=== PATIENT | female | born 1930 | race Caucasian/White ===

== ENCOUNTER 2016-11-10 09:47 | Emergency (ER) | payer MEDICARE, OTHER ==
[2016-11-10 10:00] VITALS: BP 137/69
--- NOTE | 2016-11-10 10:35 | EDM.PDOC ---
ED HPI GENERAL MEDICAL PROBLEM - General Chief Complaint: General Stated Complaint: FEELS WEAK/HEAD FEEL HEAVY Time Seen by Provider: 11/10/16 10:16 Source of Information: Reports: Patient, Family, RN Notes Reviewed History Limitations: Reports: No Limitations - History of Present Illness INITIAL COMMENTS - FREE TEXT/NARRATIVE: 86-year-old female presents emergency department day with a complaint of not feeling right, she states she felt well yesterday however this morning she woke up feeling slightly dizzy "head is heavy" no shortness of breath chest pain nausea vomiting dysuria she does admit to being anxious and concerned about family affairs Right Abdominal Pain Score (Numeric/FACES): 1 - Related Data Allergies Allergy/AdvReac Type Severity Reaction Status Date / Time gentamicin [Gentamicin] Allergy Rash Verified 11/10/16 10:08 acetaminophen [From Tylenol] AdvReac does not Verified 11/10/16 10:08 work codeine AdvReac does not Verified 11/10/16 10:08 work Home Meds: Home Meds Lisinopril 20 mg PO DAILY 01/29/13 [History] atorvaSTATin [Lipitor] 80 mg PO DAILY 01/29/13 [History] metFORMIN [metFORMIN XR] 500 mg PO BID 01/29/13 [History] Cephalexin [Keflex] 250 mg PO .M,W,F 11/01/13 [History] Amoxicillin/Potassium Clav [Augmentin 875-125 Tablet] 1 tab PO BID 11/10/16 [ History] Aspirin [Halfprin] 1 tab PO DAILY 11/10/16 [History] Past Medical History HEENT History: Reports: Cataract, Hard of Hearing, Impaired Vision Cardiovascular History: Reports: High Cholesterol, Hypertension Gastrointestinal History: Reports: Diverticulosis Genitourinary History: Reports: UTI, Recurrent, Other (See Below) Other Genitourinary History: prophylaxis with cephalexin 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: Musculoskeletal History: Reports: Osteoarthritis, Other (See Below) Other Musculoskeletal History: sciatica Psychiatric History: Reports: Anxiety Endocrine/Metabolic History: Reports: Diabetes, Type II Oncologic (Cancer) History: Reports: Basal Cell Carcinoma, Bladder - Past Surgical History HEENT Surgical History: Reports: Other (See Below) Other HEENT Surgeries/Procedures: retina surgery left eye Female Surgical History: Reports: Hysterectomy, Oophorectomy, Other (See Below) Other Female Surgeries/Procedures: transurethral resection Endocrine Surgical History: Reports: Other (See Below) Other Endocrine Surgeries/Procedures: removal of parathyroid adenoma Oncologic Surgical History: Reports: Biopsy of Breast Social & Family History - Tobacco Use Smoking Status *Q: Never Smoker Second Hand Smoke Exposure: No - Alcohol Use Days Per Week of Alcohol Use: 0 - Recreational Drug Use Recreational Drug Use: No ED ROS GENERAL - Review of Systems Review Of Systems: See Below Constitutional: Reports: No Symptoms HEENT: Reports: No Symptoms Respiratory: Reports: No Symptoms Cardiovascular: Reports: No Symptoms GI/Abdominal: Reports: No Symptoms : Reports: No Symptoms Musculoskeletal: Reports: No Symptoms Skin: Reports: No Symptoms Neurological: Reports: Dizziness ED EXAM, GENERAL - Physical Exam Exam: See Below Free Text/Narrative:: General: Elderly female, not in any distress, alert and oriented x3 HEENT: head is atraumatic normocephalic, eyes pupils equal round reactive to light, sclera clear no conjunctivitis appreciated. Ears tympanic membranes clear and watt landmarks and light reflex are present bilaterally canals are clear. Nose no septal deviation, nares are clear, no blood present. Mouth mucosa is moist and pink no erythema or exudate noted in soft palate, tongue is midline uvula is midline, dentition is intact. Neck: Supple no thyromegaly no tracheal deviation. Nodes: Cervical nodes subclavicular nodes nontender no palpable lymphadenopathy noted. Lungs: clear to auscultation bilaterally with symmetrical respirations, no adventitious noise appreciated. CV: Regular rate and rhythm S1 and S2 appreciated grade 2/6 systolic ejection murmur, no rubs or gallops noted. Abdomen: Soft, nontender, no palpable masses or organomegaly appreciated, no distention no guarding bowel sounds are present,. Neuro: Cranial nerves II through XII grossly intact, power is 5 out 5 in upper and lower extremities, patellar reflex, biceps reflex +2 can do finger to nose without difficulty no dysdiadochokinesis no difficulty with rapid alternating movements can do [id number] without difficulty Romberg is negative, has adequate gait can do heel to toe, can toe walk and heel walk no cerebellar dysfunction no focal neurologic deficit Skin: Warm and dry, intact Extremities: No lower extremity edema appreciated, Course - Vital Signs Last Recorded V/S: Last Vital Signs Temp 97.9 F 11/10/16 10:06 Pulse 86 11/10/16 10:06 Resp 14 11/10/16 10:06 BP 137/69 11/10/16 10:06 Pulse Ox 93 L 11/10/16 10:06 - Orders/Labs/Meds Orders: Active Orders 24 hr Category Date Time Status EKG Documentation Completion [RC] ASDIRECTED Care 11/10/16 10:32 Active EKG 12 Lead [EK] Urgent Ther 11/10/16 10:31 Ordered Labs: Laboratory Tests 11/10/16 11/10/16 11/10/16 Range/Units 10:37 10:37 11:27 WBC 6.6 (4.5-11.0) K/uL RBC 4.37 (3.30-5.50) M/uL Hgb 13.4 (12.0-15.0) g/dL Hct 40.9 (36.0-48.0) % MCV 94 (80-98) fL MCH 31 (27-31) pg MCHC 33 (32-36) % Plt Count 340 (150-400) K/uL Neut % (Auto) 63 (36-66) % Lymph % (Auto) 27 (24-44) % [place] % (Auto) 9 H (2-6) % Eos % (Auto) 1 L (2-4) % Baso % (Auto) 1 (0-1) % Sodium 141 (140-148) mmol/L Potassium 4.1 (3.6-5.2) mmol/L Chloride 103 (100-108) mmol/L Carbon Dioxide 29 (21-32) mmol/L Anion Gap 8.6 (5.0-14.0) mmol/L BUN 17 (7-18) mg/dL Creatinine 0.9 (0.6-1.0) mg/dL Est Cr Clr Drug Dosing 46.02 mL/min Estimated GFR (MDRD) 59 L (>60) Glucose 226 H (74-106) mg/dL Calcium 9.0 (8.5-10.1) mg/dL TSH, Ultra Sensitive 2.750 (0.358-3.740) uIU/mL Urine Color Yellow Urine Appearance Slightly cloudy Urine pH 5.0 (4.5-8.0) Ur Specific [place] 1.020 (1.008-1.030) Urine Protein Negative (NEGATIVE) mg/dL Urine Glucose (UA) 100 H (NEGATIVE) mg/dL Urine Ketones Negative (NEGATIVE) mg/dL Urine Occult Blood Large (NEGATIVE) Urine Nitrite Negative (NEGATIVE) Urine Bilirubin Negative (NEGATIVE) Urine Urobilinogen Normal (NORMAL) mg/dL Ur Leukocyte Esterase Negative (NEGATIVE) Urine RBC 10-20 H (0-5) Urine WBC 0-5 (0-5) Ur Epithelial Cells Few Amorphous Sediment Not seen Urine Bacteria Rare Urine Mucus Moderate Departure - Departure Time of Disposition: 12:11 Disposition: Home, Self-Care 01 Condition: Good Clinical Impression: Hematuria - Discharge Information Forms: ED Department Discharge Additional Instructions: Continue with your regular medications, Please followup with your primary care provider in 7-10 days if not better, please call return to the emergency department with worsening of symptoms. - My Orders Last 24 Hours: My Active Orders 11/10/16 10:31 EKG 12 Lead [EK] Urgent 11/10/16 10:32 EKG Documentation Completion [RC] ASDIRECTED - Assessment/Plan Last 24 Hours: My Active Orders 11/10/16 10:31 EKG 12 Lead [EK] Urgent 11/10/16 10:32 EKG Documentation Completion [RC] ASDIRECTED Plan: Assessment Acuity = acute Site and laterality = intermittent dizziness, complicated in patient with known history of diabetes mellitus type II Etiology = suspicious for blood sugar fluctuation Manifestations = none Location of injury = Home Lab values = CBC unremarkable glucose elevated to 226 consistent hyperglycemia urinalysis reveals 10-20 rbc's consistent with a hematuria Plan I did review lab work with her the hematuria is new to her I have asked her follow-up with her primary care in the next 7-10 days for reevaluation Patient was in agreement with the plan all questions were answered, they were instructed to return to the emergency department or call for worsening symptoms. This note was dictated using [employer] voice recognition software please call with any questions.
== END 2016-11-10 12:40 | disposition home or self-care (01) ==
LOC: JP.ED 09:47
DX: R31.9 Hematuria, unspecified (principal); I10 Essential (primary) hypertension; E78.00 Pure hypercholesterolemia, unspecified; M19.90 Unspecified osteoarthritis, unspecified site; F41.9 Anxiety disorder, unspecified; E11.9 Type 2 diabetes mellitus without complications; Z85.51 Personal history of malignant neoplasm of bladder; Z85.828 Personal history of other malignant neoplasm of skin; Z98.890 Other specified postprocedural states; Z90.710 Acquired absence of both cervix and uterus; Z79.82 Long term (current) use of aspirin; Z79.899 Other long term (current) drug therapy; Z88.5 Allergy status to narcotic agent; Z88.6 Allergy status to analgesic agent; Z88.1 Allergy status to other antibiotic agents
CPT/HCPCS: 36415; 80048; 81001; 84443; 85025; 93005; 93010; 99282; 99284-25

== ENCOUNTER 2017-02-21 11:33 | Emergency (ER) | payer MEDICARE, OTHER ==
[2017-02-21 12:00] VITALS: BP 163/83
--- NOTE | 2017-02-21 12:27 | EDM.PDOC ---
ED HPI GENERAL MEDICAL PROBLEM - General Chief Complaint: General Stated Complaint: FELL AT COBORN'S Time Seen by Provider: 02/21/17 12:09 Source of Information: Reports: Patient, RN Notes Reviewed History Limitations: Reports: No Limitations - History of Present Illness INITIAL COMMENTS - FREE TEXT/NARRATIVE: 87-year-old female presents emergency department day following a fall to ground , this happened at the grocery store earlier today she believes she tripped over her pain she was unable to catch herself landed predominantly on her chest and also injured her forehead above her left eye, she does have bruising over the left eye as well as tenderness over the left breast no other functional complaints - Related Data Allergies Allergy/AdvReac Type Severity Reaction Status Date / Time gentamicin [Gentamicin] Allergy Rash Verified 02/21/17 11:51 acetaminophen [From Tylenol] AdvReac does not Verified 02/21/17 11:51 work codeine AdvReac does not Verified 02/21/17 11:51 work Home Meds: Home Meds Lisinopril 20 mg PO DAILY 01/29/13 [History] atorvaSTATin [Lipitor] 80 mg PO BEDTIME 01/29/13 [History] metFORMIN [metFORMIN XR] 500 mg PO BID 01/29/13 [History] Cephalexin [Keflex] 250 mg PO .M,W,F 11/01/13 [History] Aspirin [Halfprin] 1 tab PO DAILY 11/10/16 [History] Past Medical History HEENT History: Reports: Cataract, Hard of Hearing, Impaired Vision Cardiovascular History: Reports: High Cholesterol, Hypertension Gastrointestinal History: Reports: Diverticulosis Genitourinary History: Reports: UTI, Recurrent, Other (See Below) Other Genitourinary History: prophylaxis with cephalexin 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: Musculoskeletal History: Reports: Osteoarthritis, Other (See Below) Other Musculoskeletal History: sciatica Psychiatric History: Reports: Anxiety Endocrine/Metabolic History: Reports: Diabetes, Type II Oncologic (Cancer) History: Reports: Basal Cell Carcinoma, Bladder - Past Surgical History HEENT Surgical History: Reports: Other (See Below) Other HEENT Surgeries/Procedures: retina surgery left eye Female Surgical History: Reports: Hysterectomy, Oophorectomy, Other (See Below) Other Female Surgeries/Procedures: transurethral resection Endocrine Surgical History: Reports: Other (See Below) Other Endocrine Surgeries/Procedures: removal of parathyroid adenoma Oncologic Surgical History: Reports: Biopsy of Breast Social & Family History - Tobacco Use Smoking Status *Q: Never Smoker Second Hand Smoke Exposure: No - Alcohol Use Days Per Week of Alcohol Use: 0 - Recreational Drug Use Recreational Drug Use: No ED ROS GENERAL - Review of Systems Review Of Systems: See Below Constitutional: Reports: No Symptoms Respiratory: Reports: No Symptoms Cardiovascular: Reports: Chest Pain GI/Abdominal: Reports: No Symptoms : Reports: No Symptoms Musculoskeletal: Reports: Other (Pain over the left eye) Skin: Reports: Bruising Neurological: Reports: No Symptoms ED EXAM, GENERAL - Physical Exam Exam: See Below Free Text/Narrative:: General: Elderly female, not in any distress, alert and oriented x3 HEENT: head is appreciable bruising is noted in the superior aspect of the left periorbital region normocephalic, eyes pupils equal round reactive to light, sclera clear no conjunctivitis appreciated, extraocular eye movements intact. Ears tympanic membranes clear and watt landmarks and light reflex are present bilaterally canals are clear. Nose no septal deviation, nares are clear, no blood present. Mouth mucosa is moist and pink no erythema or exudate noted in soft palate, tongue is midline uvula is midline, dentition is intact. Neck: Supple no thyromegaly no tracheal deviation. Nodes: Cervical nodes subclavicular nodes nontender no palpable lymphadenopathy noted. Lungs: clear to auscultation bilaterally with symmetrical respirations, no adventitious noise appreciated. CV: Regular rate and rhythm S1 and S2 appreciated no murmurs rubs or gallops noted. Chest she is tender to palpation over the left chest area no bruising noted Abdomen: Soft, nontender, no palpable masses or organomegaly appreciated, no distention no guarding bowel sounds are present, . Neuro: Cranial nerves II through XII grossly intact Skin: Warm and dry, intact Extremities: No lower extremity edema appreciated, Course - Vital Signs Last Recorded V/S: Last Vital Signs Temp 97.9 F 02/21/17 11:58 Pulse 72 02/21/17 11:58 Resp 16 02/21/17 11:58 BP 163/83 H 02/21/17 11:58 Pulse Ox 98 02/21/17 11:58 Departure - Departure Time of Disposition: 12:26 Disposition: Home, Self-Care 01 Condition: Good Clinical Impression: Periorbital contusion of left eye Qualifiers: Encounter type: initial encounter Qualified Code(s): S05.12XA - Contusion of eyeball and orbital tissues, left eye, initial encounter Chest wall contusion Qualifiers: Encounter type: initial encounter Laterality: left Qualified Code(s): S20.212A - Contusion of left front wall of thorax, initial encounter - Discharge Information Referrals: Virginia José PA [Primary Care Provider] - Additional Instructions: Use ibuprofen or Tylenol as needed for pain control, Please followup with your primary care provider in 3-5 days if not better, please call return to the emergency department with worsening of symptoms. - Assessment/Plan Plan: Assessment Acuity = acute Site and laterality = contusion above his left eye, chest wall contusion Etiology = secondary to fall Manifestations = none] Location of injury = Home Lab values = none Plan I did review with her options including image studies like a CAT scan, she elected to do watchful waiting at this time will follow-up as needed Patient was in agreement with the plan all questions were answered, they were instructed to return to the emergency department or call for worsening symptoms. This note was dictated using [employer] voice recognition software please call with any questions.
== END 2017-02-21 12:45 | disposition home or self-care (01) ==
LOC: JP.ED 11:33
DX: S05.12XA Contusion of eyeball and orbital tissues, left eye, initial encounter (principal); S20.212A Contusion of left front wall of thorax, initial encounter; I10 Essential (primary) hypertension; E78.00 Pure hypercholesterolemia, unspecified; E11.9 Type 2 diabetes mellitus without complications; Z79.82 Long term (current) use of aspirin; Z79.84 Long term (current) use of oral hypoglycemic drugs; Z88.5 Allergy status to narcotic agent; Z88.1 Allergy status to other antibiotic agents; Z88.8 Allergy status to other drugs, medicaments and biological substances; Z88.6 Allergy status to analgesic agent; W19.XXXA Unspecified fall, initial encounter; Y92.512 Supermarket, store or market as the place of occurrence of the external cause
CPT/HCPCS: 99283

== ENCOUNTER 2017-02-21 16:46 | Emergency (ER) | payer MEDICARE, OTHER ==
[2017-02-21] MEDS ORDERED: Sodium Chloride 0.9% 1,000 ML IV SCH (17:15)
[2017-02-21] MEDS ORDERED: Sodium Chloride 0.9% 10 ML Syringe FLUSH PRN (17:15)
[2017-02-21 17:18] VITALS: BP 152/79
--- NOTE | 2017-02-21 17:18 | EDM.PDOC ---
ED HPI GENERAL MEDICAL PROBLEM - General Chief Complaint: General Stated Complaint: TROUBLE BREATHING Time Seen by Provider: 02/21/17 17:09 Source of Information: Reports: Patient, Family, RN Notes Reviewed History Limitations: Reports: No Limitations - History of Present Illness INITIAL COMMENTS - FREE TEXT/NARRATIVE: 87-year-old female presents emergency department day for reevaluation she was in earlier in the day evaluated by myself following a fall to ground we talked about image studies she declined at the time she states did well when she went home today however after she awoke from her nap she had sudden chest pain on the left side where she fell and she found it difficult for her to breathe, please see prior note for details left side Pain Score (Numeric/FACES): 5 - Related Data Allergies Allergy/AdvReac Type Severity Reaction Status Date / Time gentamicin [Gentamicin] Allergy Rash Verified 02/21/17 16:50 acetaminophen [From Tylenol] AdvReac does not Verified 02/21/17 16:50 work codeine AdvReac does not Verified 02/21/17 16:50 work Home Meds: Home Meds Lisinopril 20 mg PO DAILY 01/29/13 [History] atorvaSTATin [Lipitor] 80 mg PO BEDTIME 01/29/13 [History] metFORMIN [metFORMIN XR] 500 mg PO BID 01/29/13 [History] Cephalexin [Keflex] 250 mg PO .M,W,F 11/01/13 [History] Aspirin [Halfprin] 1 tab PO DAILY 11/10/16 [History] Past Medical History HEENT History: Reports: Cataract, Hard of Hearing, Impaired Vision Cardiovascular History: Reports: High Cholesterol, Hypertension Gastrointestinal History: Reports: Diverticulosis Genitourinary History: Reports: UTI, Recurrent, Other (See Below) Other Genitourinary History: prophylaxis with cephalexin 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: Musculoskeletal History: Reports: Osteoarthritis, Other (See Below) Other Musculoskeletal History: sciatica Psychiatric History: Reports: Anxiety Endocrine/Metabolic History: Reports: Diabetes, Type II Oncologic (Cancer) History: Reports: Basal Cell Carcinoma, Bladder - Past Surgical History HEENT Surgical History: Reports: Other (See Below) Other HEENT Surgeries/Procedures: retina surgery left eye Female Surgical History: Reports: Hysterectomy, Oophorectomy, Other (See Below) Other Female Surgeries/Procedures: transurethral resection Endocrine Surgical History: Reports: Other (See Below) Other Endocrine Surgeries/Procedures: removal of parathyroid adenoma Oncologic Surgical History: Reports: Biopsy of Breast Social & Family History - Tobacco Use Smoking Status *Q: Never Smoker Second Hand Smoke Exposure: No - Alcohol Use Days Per Week of Alcohol Use: 0 - Recreational Drug Use Recreational Drug Use: No ED ROS GENERAL - Review of Systems Review Of Systems: See Below Constitutional: Reports: No Symptoms HEENT: Reports: Eye Pain (Bruising around I left side) Respiratory: Reports: Shortness of Breath. Denies: Cough, Sputum Cardiovascular: Reports: Chest Pain, Dyspnea on Exertion GI/Abdominal: Reports: No Symptoms : Reports: No Symptoms Musculoskeletal: Reports: No Symptoms Skin: Reports: No Symptoms Neurological: Reports: No Symptoms ED EXAM, GENERAL - Physical Exam Exam: See Below Exam Limited By: No Limitations General Appearance: Alert, WD/WN, No Apparent Distress Eye Exam: Left Eye: Periorbital Changes Head: Normocephalic, Facial Swelling. No: Facial Tenderness Neck: Normal Inspection, Supple, Non-Tender, Full Range of Motion Respiratory/Chest: No Respiratory Distress, Lungs Clear, Normal Breath Sounds, No Accessory Muscle Use, Chest Non-Tender Cardiovascular: Regular Rate, Rhythm, Systolic Murmur Course - Vital Signs Last Recorded V/S: Last Vital Signs Temp 98.3 F 02/21/17 17:07 Pulse 98 02/21/17 17:07 Resp 28 H 02/21/17 17:07 BP 152/79 H 02/21/17 17:07 Pulse Ox 97 02/21/17 17:07 - Orders/Labs/Meds Orders: Active Orders 24 hr Category Date Time Status Peripheral IV Care [RC] . DIRECTED Care 02/21/17 17:16 Active Chest w Cont [CT] Stat Exams 02/21/17 17:15 Taken Iopamidol [Isovue-300 (61%)] Med 02/21/17 17:19 Active 100 ml IV . DIRECTED PRN Sodium Chloride 0.9% [Normal Saline] 1,000 ml Med 02/21/17 17:15 Active IV ASDIRECTED Sodium Chloride 0.9% [Saline Flush] Med 02/21/17 17:15 Active 10 ml FLUSH ASDIRECTED PRN Peripheral IV Insertion Adult [OM.PC] Urgent Oth 02/21/17 17:15 Ordered Medication Orders Sodium Chloride (Normal Saline) 1,000 mls @ 500 mls/hr IV ASDIRECTED AMI Iopamidol (Isovue-300 (61%)) 100 ml IV . DIRECTED PRN PRN Reason: RADIOLOGY EXAM Stop: 02/22/17 17:20 Last Admin: 02/21/17 17:51 Dose: 100 ml Sodium Chloride (Saline Flush) 10 ml FLUSH ASDIRECTED PRN PRN Reason: Keep Vein Open Last Admin: 02/21/17 18:05 Dose: 10 ml Labs: Laboratory Tests 02/21/17 02/21/17 Range/Units 17:24 17:24 WBC 11.8 H (4.5-11.0) K/uL RBC 4.33 (3.30-5.50) M/uL Hgb 13.1 (12.0-15.0) g/dL Hct 40.1 (36.0-48.0) % MCV 93 (80-98) fL MCH 30 (27-31) pg MCHC 33 (32-36) % Plt Count 316 (150-400) K/uL Neut % (Auto) 75 H (36-66) % Lymph % (Auto) 18 L (24-44) % [place] % (Auto) 7 H (2-6) % Eos % (Auto) 1 L (2-4) % Baso % (Auto) 0 (0-1) % Sodium 139 L (140-148) mmol/L Potassium 3.6 (3.6-5.2) mmol/L Chloride 103 (100-108) mmol/L Carbon Dioxide 25 (21-32) mmol/L Anion Gap 14.6 H (5.0-14.0) mmol/L BUN 24 H (7-18) mg/dL Creatinine 0.8 (0.6-1.0) mg/dL Est Cr Clr Drug Dosing 50.80 mL/min Estimated GFR (MDRD) > 60 (>60) Glucose 237 H (74-106) mg/dL Calcium 8.5 (8.5-10.1) mg/dL Meds: Medications Generic Name Dose Route Start Last Admin Trade Name Freq PRN Reason Stop Dose Admin Sodium Chloride 1,000 mls @ 500 mls/hr 02/21/17 17:15 Normal Saline IV ASDIRECTED AMI Iopamidol 100 ml 02/21/17 17:19 02/21/17 17:51 Isovue-300 (61%) IV 02/22/17 17:20 100 ml . DIRECTED PRN Administration RADIOLOGY EXAM Sodium Chloride 10 ml 02/21/17 17:15 02/21/17 18:05 Saline Flush FLUSH 10 ml ASDIRECTED PRN Administration Keep Vein Open Discontinued Medications Generic Name Dose Route Start Last Admin Trade Name Freyfn PRN Reason Stop Dose Admin Sodium Chloride 70 mls @ 3 mls/sec 02/21/17 17:30 02/21/17 17:51 Normal Saline IV 02/21/17 17:31 3 mls/sec ASDIRECTED AMI Administration Sodium Chloride 100 mls @ 3 mls/sec 02/21/17 17:45 Normal Saline IV ASDIRECTED AMI Iopamidol 100 ml 02/21/17 17:45 Isovue-300 (61%) IV . DIRECTED AMI Departure - Departure Time of Disposition: 18:52 Disposition: Home, Self-Care 01 Condition: Good Clinical Impression: Fracture of ribs, four, closed Qualifiers: Encounter type: initial encounter Laterality: left Qualified Code(s): S22.42XA - Multiple fractures of ribs, left side, initial encounter for closed fracture - Discharge Information Referrals: Virginia José PA [Primary Care Provider] - Forms: ED Department Discharge Additional Instructions: You can take ibuprofen 600 mg by mouth 4 times a day for baseline pain control, you can use hydrocodone for breakthrough pain, Please followup with your primary care provider in 3-5 days if not better, please call return to the emergency department with worsening of symptoms. - My Orders Last 24 Hours: My Active Orders 02/21/17 17:15 Chest w Cont [CT] Stat Sodium Chloride 0.9% [Normal Saline] 1,000 ml IV ASDIRECTED Sodium Chloride 0.9% [Saline Flush] 10 ml FLUSH ASDIRECTED PRN Peripheral IV Insertion Adult [OM.PC] Urgent 02/21/17 17:16 Peripheral IV Care [RC] . DIRECTED 02/21/17 17:19 Iopamidol [Isovue-300 (61%)] 100 ml IV . DIRECTED PRN - Assessment/Plan Last 24 Hours: My Active Orders 02/21/17 17:15 Chest w Cont [CT] Stat Sodium Chloride 0.9% [Normal Saline] 1,000 ml IV ASDIRECTED Sodium Chloride 0.9% [Saline Flush] 10 ml FLUSH ASDIRECTED PRN Peripheral IV Insertion Adult [OM.PC] Urgent 02/21/17 17:16 Peripheral IV Care [RC] . DIRECTED 02/21/17 17:19 Iopamidol [Isovue-300 (61%)] 100 ml IV . DIRECTED PRN Plan: Assessment Acuity = acute Site and laterality = fourth rib fracture left side anterior Etiology = secondary to a fall Manifestations = none Location of injury = Home Lab values = CBC, CMP unremarkable CT scan IMPRESSION: 1. Fracture of the anterior lateral left 4th rib. No pneumothorax. 2. Small amount of dependent atelectasis in the posterior lungs. 3. Bilateral renal cysts. 4. 12 mm hepatic cyst right lobe of the liver. 5. 1.5 cm heterogeneous nodule left lobe of the thyroid. Plan She'll be discharged home with hydrocodone 5/325 one tab by mouth 3 times a day when necessary total #20 follow-up with primary care 3-5 days for reevaluation Patient was in agreement with the plan all questions were answered, they were instructed to return to the emergency department or call for worsening symptoms. This note was dictated using [employer] voice recognition software please call with any questions.
[2017-02-21] MEDS ORDERED: Iopamidol 612 MG/ML 100 ML Bottle IV PRN (17:19)
[2017-02-21] MEDS ORDERED: Iopamidol 612 MG/ML 100 ML Bottle IV SCH (17:45)
[2017-02-21] MEDS ORDERED: Sodium Chloride 0.9% 100 ML IV SCH (17:45)
== END 2017-02-21 19:26 | disposition home or self-care (01) ==
LOC: JP.ED 16:46
DX: S22.32XA Fracture of one rib, left side, initial encounter for closed fracture (principal); I10 Essential (primary) hypertension; E78.00 Pure hypercholesterolemia, unspecified; E11.9 Type 2 diabetes mellitus without complications; Z88.5 Allergy status to narcotic agent; Z88.1 Allergy status to other antibiotic agents; Z79.84 Long term (current) use of oral hypoglycemic drugs; Z79.899 Other long term (current) drug therapy; W19.XXXA Unspecified fall, initial encounter; S05.12XA Contusion of eyeball and orbital tissues, left eye, initial encounter; S20.212A Contusion of left front wall of thorax, initial encounter; Z88.6 Allergy status to analgesic agent; Z88.8 Allergy status to other drugs, medicaments and biological substances; Y92.512 Supermarket, store or market as the place of occurrence of the external cause
CPT/HCPCS: 36415; 71260; 80048; 85025; 99283; 99284; 99285; J7030; J7050; Q9967

== ENCOUNTER 2017-04-26 08:22 | Day surgery (SDC) | payer MEDICARE, OTHER ==
[2017-04-26] MEDS ORDERED: Sodium Chloride 0.9% 10 ML Syringe FLUSH PRN (08:30)
[2017-04-26 10:42] VITALS: BP 158/83
--- NOTE | 2017-04-26 11:29 | OR ---
DATE OF PROCEDURE: 04/26/2017 POSTOPERATIVE CARE: Postoperative care will be provided mainly at the [address] [place] [address] [facility] in conjunction with [facility]. PREOPERATIVE DIAGNOSIS: Cataract, right eye. PREOPERATIVE DIAGNOSIS: Cataract, right eye. PROCEDURE: Cataract extraction, phacoemulsification with intraocular lens placement, right eye. ANESTHESIA: Topical and intracameral. ESTIMATED BLOOD LOSS: Minimal. COMPLICATIONS: None. PATHOLOGY SPECIMENS: None. SURGICAL FINDINGS: None. INDICATION FOR PROCEDURE: The patient is an 87-year-old female with history of a visually significant cataract in the right eye, which interfered with activities of daily living. This consisted of a nuclear sclerosis cataract. Following careful discussion of the risks, benefits and alternatives to cataract extraction with intraocular lens placement including blindness and , the patient elected to proceed, and informed, written consent was obtained prior to the procedure. DESCRIPTION OF THE PROCEDURE: The patient was previously identified, and a mando placed above the right eye. All sources, including the patient, indicated that the right eye was the correct eye. The patient was subsequently taken to the operating room where standard monitors were applied. The patient was then prepped and draped in the usual sterile fashion for ophthalmic surgery. Attention was first directed at the 12 o'clock position where a paracentesis port was fashioned. Shugar solution followed by Viscoat was instilled into the eye. Attention was then directed to the 8:30 position where a triplanar incision was made in a near-clear manner using a keratome. A continuous capsulorrhexis was then made using a combination of the cystotome and Utrata forceps. Hydrodissection was achieved using a balanced salt solution, and the lens rotated nicely. Phacoemulsification was then done using a modified [id number] technique without complication. Phaco time was 18.76 CDE. The remaining cortex was removed using the irrigation/aspiration handpiece. Provisc was then instilled into the eye. A Technis lens, model [id number], at 18.5 diopters was then placed in the capsular bag using an [place] injector. The remaining viscoelastic was removed using the irrigation/aspiration forceps. All wounds were then checked and found to be watertight. The lid speculum and drapes were removed. Maxitrol ointment was placed in the patient's right eye, and the eye was shielded. The patient tolerated the procedure well. The patient was instructed to follow up tomorrow. All needle and sponge counts were correct at the end of the procedure. Lakeshia Wall MD /[id number]
== END 2017-04-26 11:10 | disposition home or self-care (01) ==
LOC: JP.SDS 08:22
PROVIDERS: ATTEND Ophthalmology
DX: H25.11 Age-related nuclear cataract, right eye (principal); I10 Essential (primary) hypertension; E11.9 Type 2 diabetes mellitus without complications
CPT/HCPCS: 66984; J7050; C1780

== ENCOUNTER 2017-07-11 08:58 | Emergency (ER) | payer MEDICARE, OTHER ==
--- NOTE | 2017-07-11 09:59 | EDM.PDOC ---
ED HPI GENERAL MEDICAL PROBLEM - General Chief Complaint: General Stated Complaint: DIZZY Time Seen by Provider: 07/11/17 09:40 Source of Information: Reports: Patient, RN Notes Reviewed History Limitations: Reports: No Limitations - History of Present Illness INITIAL COMMENTS - FREE TEXT/NARRATIVE: 87-year-old female presents emergency department today complaint of dizziness, she states she had an episode this morning lasted about a minute, it occurred shortly after a large bowel movement she had no nausea no vomiting no shortness of breath no chest pain felt very lightheaded. All of her symptoms have now resolved Headache Pain Score (Numeric/FACES): 2 - Related Data Allergies Allergy/AdvReac Type Severity Reaction Status Date / Time gentamicin [Gentamicin] Allergy Rash Verified 07/11/17 09:39 acetaminophen [From Tylenol] AdvReac does not Verified 07/11/17 09:39 work codeine AdvReac does not Verified 07/11/17 09:39 work Home Meds: Home Meds Lisinopril 20 mg PO DAILY 01/29/13 [History] atorvaSTATin [Lipitor] 80 mg PO BEDTIME 01/29/13 [History] metFORMIN [metFORMIN XR] 500 mg PO BID 01/29/13 [History] Cephalexin [Keflex] 250 mg PO .M,W,F 11/01/13 [History] Aspirin [Halfprin] 1 tab PO DAILY 11/10/16 [History] Cholecalciferol (Vitamin D3) [Vitamin D] 5,000 unit PO DAILY 03/08/17 [History] [place]-3 Fatty Acids [[place]-3] 1 tab PO BID 03/08/17 [History] Ubidecarenone [Coenzyme Q10] 400 mg PO DAILY 03/08/17 [History] Past Medical History HEENT History: Reports: Cataract, Hard of Hearing, Impaired Vision Cardiovascular History: Reports: Afib, High Cholesterol, Hypertension Gastrointestinal History: Reports: Diverticulosis Genitourinary History: Reports: UTI, Recurrent, Other (See Below) Other Genitourinary History: prophylaxis with cephalexin 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: Musculoskeletal History: Reports: Arthritis, Osteoarthritis, Other (See Below) Other Musculoskeletal History: sciatica Psychiatric History: Reports: Anxiety Endocrine/Metabolic History: Reports: Diabetes, Type II Oncologic (Cancer) History: Reports: Basal Cell Carcinoma, Bladder - Infectious Disease History Infectious Disease History: Reports: Chicken Pox, Measles, Mumps - Past Surgical History Head Surgeries/Procedures: Reports: None HEENT Surgical History: Reports: Cataract Surgery, Tonsillectomy, Other (See Below) Other HEENT Surgeries/Procedures: retina surgery left eye Cardiovascular Surgical History: Reports: Cardiac Ablation GI Surgical History: Reports: Colonoscopy Female Surgical History: Reports: Hysterectomy, Oophorectomy, Other (See Below) Other Female Surgeries/Procedures: transurethral resection Endocrine Surgical History: Reports: Other (See Below) Other Endocrine Surgeries/Procedures: removal of parathyroid adenoma Musculoskeletal Surgical History: Reports: None Oncologic Surgical History: Reports: Biopsy of Breast Dermatological Surgical History: Reports: None Social & Family History - Family History Family Medical History: Noncontributory - Tobacco Use Smoking Status *Q: Never Smoker Second Hand Smoke Exposure: No - Caffeine Use Caffeine Use: Reports: Coffee, Soda, Tea - Alcohol Use Days Per Week of Alcohol Use: 0 - Recreational Drug Use Recreational Drug Use: No ED ROS GENERAL - Review of Systems Review Of Systems: See Below Constitutional: Reports: No Symptoms HEENT: Reports: No Symptoms Respiratory: Reports: No Symptoms Cardiovascular: Reports: Lightheadedness GI/Abdominal: Reports: No Symptoms : Reports: No Symptoms Musculoskeletal: Reports: No Symptoms Skin: Reports: No Symptoms Neurological: Reports: No Symptoms ED EXAM, GENERAL - Physical Exam Exam: See Below Free Text/Narrative:: General: Female, not in any distress, alert and oriented x3 HEENT: head is atraumatic normocephalic, eyes pupils equal round reactive to light, sclera clear no conjunctivitis appreciated. Ears left tympanic membranes clear and watt, right ear has a hearing aid in place. Nose no septal deviation, nares are clear, no blood present. Mouth mucosa is moist and pink no erythema or exudate noted in soft palate, tongue is midline uvula is midline, dentition is intact. Neck: Supple no thyromegaly no tracheal deviation. Nodes: Cervical nodes subclavicular nodes nontender no palpable lymphadenopathy noted. Lungs: clear to auscultation bilaterally with symmetrical respirations, no adventitious noise appreciated. CV: Regular rate and rhythm S1 and S2 appreciated grade 2/6 systolic ejection murmur best appreciated left sternal border, no rubs or gallops noted. Abdomen: Soft, nontender, no palpable masses or organomegaly appreciated, no distention no guarding bowel sounds are present, . Neuro: Cranial nerves II through XII grossly intact Skin: Warm and dry, intact Extremities: No lower extremity edema appreciated, pedal pulse is +2. Course - Vital Signs Last Recorded V/S: Last Vital Signs Temp 96.4 F 07/11/17 09:21 Pulse 59 L 07/11/17 10:33 Resp 18 07/11/17 10:33 BP 128/60 07/11/17 10:33 Pulse Ox 95 07/11/17 10:33 - Orders/Labs/Meds Orders: Active Orders 24 hr Category Date Time Status EKG Documentation Completion [RC] ASDIRECTED Care 07/11/17 09:56 Active CULTURE URINE [RM] Urgent Lab 07/11/17 11:00 Received EKG 12 Lead [EK] Stat Ther 07/11/17 09:55 Ordered Labs: Laboratory Tests 07/11/17 07/11/17 07/11/17 Range/Units 10:05 10:05 10:05 WBC 5.9 (4.5-11.0) K/uL RBC 4.12 (3.30-5.50) M/uL Hgb 12.5 (12.0-15.0) g/dL Hct 38.8 (36.0-48.0) % MCV 94 (80-98) fL MCH 30 (27-31) pg MCHC 32 (32-36) % Plt Count 284 (150-400) K/uL Neut % (Auto) 67 H (36-66) % Lymph % (Auto) 23 L (24-44) % [place] % (Auto) 8 H (2-6) % Eos % (Auto) 1 L (2-4) % Baso % (Auto) 1 (0-1) % D-Dimer, Quantitative 773 H (0.0-400.0) ng/mL Sodium 146 (140-148) mmol/L Potassium 3.7 (3.6-5.2) mmol/L Chloride 109 H (100-108) mmol/L Carbon Dioxide 27 (21-32) mmol/L Anion Gap 13.7 (5.0-14.0) mmol/L BUN 18 (7-18) mg/dL Creatinine 0.8 (0.6-1.0) mg/dL Est Cr Clr Drug Dosing 50.80 mL/min Estimated GFR (MDRD) > 60 (>60) Glucose 145 H (74-106) mg/dL Calcium 8.7 (8.5-10.1) mg/dL Total Bilirubin 0.4 (0.2-1.0) mg/dL AST 20 (15-37) U/L ALT 23 (12-78) U/L Alkaline Phosphatase 80 (46-116) U/L Total Protein 6.1 L (6.4-8.2) g/dL Albumin 3.0 L (3.4-5.0) g/dL Globulin 3.1 (2.3-3.5) g/dL Albumin/Globulin Ratio 1.0 L (1.2-2.2) Urine Color Urine Appearance Urine pH (4.5-8.0) Ur Specific [place] (1.008-1.030) Urine Protein (NEGATIVE) mg/dL Urine Glucose (UA) (NEGATIVE) mg/dL Urine Ketones (NEGATIVE) mg/dL Urine Occult Blood (NEGATIVE) Urine Nitrite (NEGATIVE) Urine Bilirubin (NEGATIVE) Urine Urobilinogen (NORMAL) mg/dL Ur Leukocyte Esterase (NEGATIVE) Urine RBC (0-5) Urine WBC (0-5) Ur Epithelial Cells Amorphous Sediment Urine Bacteria Urine Mucus 07/11/17 Range/Units 10:25 WBC (4.5-11.0) K/uL RBC (3.30-5.50) M/uL Hgb (12.0-15.0) g/dL Hct (36.0-48.0) % MCV (80-98) fL MCH (27-31) pg MCHC (32-36) % Plt Count (150-400) K/uL Neut % (Auto) (36-66) % Lymph % (Auto) (24-44) % [place] % (Auto) (2-6) % Eos % (Auto) (2-4) % Baso % (Auto) (0-1) % D-Dimer, Quantitative (0.0-400.0) ng/mL Sodium (140-148) mmol/L Potassium (3.6-5.2) mmol/L Chloride (100-108) mmol/L Carbon Dioxide (21-32) mmol/L Anion Gap (5.0-14.0) mmol/L BUN (7-18) mg/dL Creatinine (0.6-1.0) mg/dL Est Cr Clr Drug Dosing mL/min Estimated GFR (MDRD) (>60) Glucose (74-106) mg/dL Calcium (8.5-10.1) mg/dL Total Bilirubin (0.2-1.0) mg/dL AST (15-37) U/L ALT (12-78) U/L Alkaline Phosphatase (46-116) U/L Total Protein (6.4-8.2) g/dL Albumin (3.4-5.0) g/dL Globulin (2.3-3.5) g/dL Albumin/Globulin Ratio (1.2-2.2) Urine Color Yellow Urine Appearance Cloudy Urine pH 5.0 (4.5-8.0) Ur Specific [place] 1.015 (1.008-1.030) Urine Protein Negative (NEGATIVE) mg/dL Urine Glucose (UA) Normal (NEGATIVE) mg/dL Urine Ketones Negative (NEGATIVE) mg/dL Urine Occult Blood Large (NEGATIVE) Urine Nitrite Negative (NEGATIVE) Urine Bilirubin Negative (NEGATIVE) Urine Urobilinogen Normal (NORMAL) mg/dL Ur Leukocyte Esterase Moderate (NEGATIVE) Urine RBC 10-20 H (0-5) Urine WBC 5-10 H (0-5) Ur Epithelial Cells Rare Amorphous Sediment Few Urine Bacteria Moderate Urine Mucus Moderate Departure - Departure Time of Disposition: 11:37 Disposition: Home, Self-Care 01 Condition: Good Clinical Impression: Dizziness - Discharge Information Referrals: Virginia José PA [Primary Care Provider] - Forms: ED Department Discharge Additional Instructions: Resume your regular medications, Please followup with your primary care provider in 3-5 days if not better, please call return to the emergency department with worsening of symptoms. - My Orders Last 24 Hours: My Active Orders 07/11/17 09:55 EKG 12 Lead [EK] Stat 07/11/17 09:56 EKG Documentation Completion [RC] ASDIRECTED 07/11/17 11:00 CULTURE URINE [RM] Urgent - Assessment/Plan Last 24 Hours: My Active Orders 07/11/17 09:55 EKG 12 Lead [EK] Stat 07/11/17 09:56 EKG Documentation Completion [RC] ASDIRECTED 07/11/17 11:00 CULTURE URINE [RM] Urgent Plan: Assessment Acuity = acute Site and laterality = dizziness Etiology = unclear etiology Manifestations = none Location of injury = Home Lab values = CBC, CMP unremarkable d-dimer elevated 775 unclear significance, EKG demonstrates right bundle branch block similar to prior EKGs Plan I did review lab work EKG results with her she remained asymptomatic while emergency department plan is discharge home follow-up with primary care as needed This note was dictated using [employer] voice recognition software please call with any questions on syntax or itzel.
[2017-07-11 10:59] VITALS: BP 128/60
== END 2017-07-11 11:57 | disposition home or self-care (01) ==
LOC: JP.ED 08:58
DX: R42 Dizziness and giddiness (principal); E11.9 Type 2 diabetes mellitus without complications; I10 Essential (primary) hypertension; I48.91 Unspecified atrial fibrillation; E78.00 Pure hypercholesterolemia, unspecified; F41.9 Anxiety disorder, unspecified; Z79.82 Long term (current) use of aspirin; Z79.899 Other long term (current) drug therapy; Z79.84 Long term (current) use of oral hypoglycemic drugs; Z88.5 Allergy status to narcotic agent; Z88.6 Allergy status to analgesic agent; Z88.1 Allergy status to other antibiotic agents
CPT/HCPCS: 36415; 80053; 81001; 85025; 85379; 87086; 93005; 99283; 99284-25

== ENCOUNTER 2017-08-07 12:45 | Emergency (ER) | payer MEDICARE, OTHER ==
--- NOTE | 2017-08-07 14:54 | EDM.PDOC ---
ED HPI GENERAL MEDICAL PROBLEM - General Chief Complaint: Cardiovascular Problem Stated Complaint: TIRED/FAST HEART RATE Time Seen by Provider: 08/07/17 14:44 Source of Information: Reports: Patient, RN Notes Reviewed History Limitations: Reports: No Limitations - History of Present Illness INITIAL COMMENTS - FREE TEXT/NARRATIVE: 87-year-old female presents to the emergency department today complaint of palpitations, she states she's been feeling weak and rundown for the last couple weeks today with primary care sibling worse she is concerned that it may be related to her blood pressure medication she takes lisinopril in the morning - Related Data Allergies Allergy/AdvReac Type Severity Reaction Status Date / Time gentamicin [Gentamicin] Allergy Rash Verified 08/07/17 14:13 acetaminophen [From Tylenol] AdvReac does not Verified 08/07/17 14:13 work codeine AdvReac does not Verified 08/07/17 14:13 work Home Meds: Home Meds Lisinopril 20 mg PO DAILY 01/29/13 [History] atorvaSTATin [Lipitor] 80 mg PO BEDTIME 01/29/13 [History] metFORMIN [metFORMIN XR] 500 mg PO BID 01/29/13 [History] Cephalexin [Keflex] 250 mg PO .M,W,F 11/01/13 [History] Aspirin [Halfprin] 1 tab PO BEDTIME 11/10/16 [History] Cholecalciferol (Vitamin D3) [Vitamin D] 5,000 unit PO ASDIRECTED 03/08/17 [ History] [place]-3 Fatty Acids [[place]-3] 1 tab PO BID 03/08/17 [History] Ubidecarenone [Coenzyme Q10] 400 mg PO ASDIRECTED 03/08/17 [History] Past Medical History HEENT History: Reports: Cataract, Hard of Hearing, Impaired Vision Cardiovascular History: Reports: Afib, Heart Murmur, High Cholesterol, Hypertension Gastrointestinal History: Reports: Diverticulosis Genitourinary History: Reports: UTI, Recurrent, Other (See Below) Other Genitourinary History: prophylaxis with cephalexin 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: Musculoskeletal History: Reports: Arthritis, Osteoarthritis, Other (See Below) Other Musculoskeletal History: sciatica Psychiatric History: Reports: Anxiety Endocrine/Metabolic History: Reports: Diabetes, Type II Oncologic (Cancer) History: Reports: Basal Cell Carcinoma, Bladder - Infectious Disease History Infectious Disease History: Reports: C-Difficile, Measles, Mumps - Past Surgical History Head Surgeries/Procedures: Reports: None HEENT Surgical History: Reports: Cataract Surgery, Tonsillectomy, Other (See Below) Other HEENT Surgeries/Procedures: retina surgery left eye Cardiovascular Surgical History: Reports: Cardiac Ablation GI Surgical History: Reports: Colonoscopy Female Surgical History: Reports: Hysterectomy, Oophorectomy, Other (See Below) Other Female Surgeries/Procedures: transurethral resection Endocrine Surgical History: Reports: Other (See Below) Other Endocrine Surgeries/Procedures: removal of parathyroid adenoma Musculoskeletal Surgical History: Reports: None Oncologic Surgical History: Reports: Biopsy of Breast Dermatological Surgical History: Reports: None Social & Family History - Family History Family Medical History: Noncontributory - Tobacco Use Smoking Status *Q: Unknown Ever Smoked Second Hand Smoke Exposure: No - Caffeine Use Caffeine Use: Reports: Coffee, Tea - Alcohol Use Days Per Week of Alcohol Use: 0 - Recreational Drug Use Recreational Drug Use: No ED ROS GENERAL - Review of Systems Review Of Systems: See Below Constitutional: Reports: Weakness, Fatigue HEENT: Reports: No Symptoms Respiratory: Reports: No Symptoms Cardiovascular: Reports: Palpitations GI/Abdominal: Reports: No Symptoms : Reports: No Symptoms Musculoskeletal: Reports: No Symptoms Skin: Reports: No Symptoms Neurological: Reports: No Symptoms ED EXAM, GENERAL - Physical Exam Exam: See Below Free Text/Narrative:: General: Female, not in any distress, alert and oriented x3 HEENT: head is atraumatic normocephalic, eyes pupils equal round reactive to light, sclera clear no conjunctivitis appreciated. Ears hearing aids in place bilaterally. Nose no septal deviation, nares are clear, no blood present. Mouth mucosa is moist and pink no erythema or exudate noted in soft palate, tongue is midline uvula is midline, dentition is intact. Neck: Supple no thyromegaly no tracheal deviation. Nodes: Cervical nodes subclavicular nodes nontender no palpable lymphadenopathy noted. Lungs: clear to auscultation bilaterally with symmetrical respirations, no adventitious noise appreciated. CV: Regular rate and rhythm S1 and S2 appreciated no murmurs rubs or gallops noted. Abdomen: Soft, nontender, no palpable masses or organomegaly appreciated, no distention no guarding bowel sounds are present, . Neuro: Cranial nerves II through XII grossly intact Skin: Warm and dry, intact Extremities: No lower extremity edema appreciated, Course - Vital Signs Last Recorded V/S: Last Vital Signs Temp 96.9 F 08/07/17 14:10 Pulse 71 08/07/17 16:11 Resp 19 08/07/17 16:11 BP 172/85 H 08/07/17 16:11 Pulse Ox 95 08/07/17 16:11 - Orders/Labs/Meds Orders: Active Orders 24 hr Category Date Time Status EKG Documentation Completion [RC] ASDIRECTED Care 08/07/17 14:52 Active UA W/MICROSCOPIC [URIN] Urgent Lab 08/07/17 15:46 Ordered EKG 12 Lead [EK] Stat Ther 08/07/17 14:52 Ordered Labs: Laboratory Tests 08/07/17 08/07/17 08/07/17 Range/Units 15:05 15:05 15:05 WBC 10.2 (4.5-11.0) K/uL RBC 4.19 (3.30-5.50) M/uL Hgb 12.8 (12.0-15.0) g/dL Hct 39.4 (36.0-48.0) % MCV 94 (80-98) fL MCH 31 (27-31) pg MCHC 33 (32-36) % Plt Count 304 (150-400) K/uL Neut % (Auto) 74 H (36-66) % Lymph % (Auto) 19 L (24-44) % [place] % (Auto) 7 H (2-6) % Eos % (Auto) 1 L (2-4) % Baso % (Auto) 0 (0-1) % Sodium 142 (140-148) mmol/L Potassium 3.9 (3.6-5.2) mmol/L Chloride 106 (100-108) mmol/L Carbon Dioxide 26 (21-32) mmol/L Anion Gap 9.6 (5.0-14.0) mmol/L BUN 18 (7-18) mg/dL Creatinine 0.9 (0.6-1.0) mg/dL Est Cr Clr Drug Dosing 45.15 mL/min Estimated GFR (MDRD) 59 L (>60) Glucose 140 H (74-106) mg/dL Calcium 9.0 (8.5-10.1) mg/dL TSH, Ultra Sensitive 1.876 (0.358-3.740) uIU/mL Urine Color Urine Appearance Urine pH (4.5-8.0) Ur Specific [place] (1.008-1.030) Urine Protein (NEGATIVE) mg/dL Urine Glucose (UA) (NEGATIVE) mg/dL Urine Ketones (NEGATIVE) mg/dL Urine Occult Blood (NEGATIVE) Urine Nitrite (NEGATIVE) Urine Bilirubin (NEGATIVE) Urine Urobilinogen (NORMAL) mg/dL Ur Leukocyte Esterase (NEGATIVE) Urine RBC (0-5) Urine WBC (0-5) Ur Epithelial Cells Amorphous Sediment Urine Bacteria Urine Mucus 08/07/17 Range/Units 15:46 WBC (4.5-11.0) K/uL RBC (3.30-5.50) M/uL Hgb (12.0-15.0) g/dL Hct (36.0-48.0) % MCV (80-98) fL MCH (27-31) pg MCHC (32-36) % Plt Count (150-400) K/uL Neut % (Auto) (36-66) % Lymph % (Auto) (24-44) % [place] % (Auto) (2-6) % Eos % (Auto) (2-4) % Baso % (Auto) (0-1) % Sodium (140-148) mmol/L Potassium (3.6-5.2) mmol/L Chloride (100-108) mmol/L Carbon Dioxide (21-32) mmol/L Anion Gap (5.0-14.0) mmol/L BUN (7-18) mg/dL Creatinine (0.6-1.0) mg/dL Est Cr Clr Drug Dosing mL/min Estimated GFR (MDRD) (>60) Glucose (74-106) mg/dL Calcium (8.5-10.1) mg/dL TSH, Ultra Sensitive (0.358-3.740) uIU/mL Urine Color Yellow Urine Appearance Clear Urine pH 6.0 (4.5-8.0) Ur Specific [place] 1.015 (1.008-1.030) Urine Protein Negative (NEGATIVE) mg/dL Urine Glucose (UA) Normal (NEGATIVE) mg/dL Urine Ketones Negative (NEGATIVE) mg/dL Urine Occult Blood Moderate (NEGATIVE) Urine Nitrite Negative (NEGATIVE) Urine Bilirubin Negative (NEGATIVE) Urine Urobilinogen Normal (NORMAL) mg/dL Ur Leukocyte Esterase Negative (NEGATIVE) Urine RBC 5-10 H (0-5) Urine WBC 0-5 (0-5) Ur Epithelial Cells Rare Amorphous Sediment Not seen Urine Bacteria Few Urine Mucus Not seen Departure - Departure Time of Disposition: 16:30 Disposition: Home, Self-Care 01 Condition: Good Clinical Impression: Palpitations Referrals: Virginia José PA [Primary Care Provider] - Forms: ED Department Discharge Additional Instructions: Recommend taking metformin twice a day, recommend lisinopril in the evening and Lipitor in the evening you could take atorvastatin in the evening but not both of these medications at the same time. Also recommend having your primary care set up pharmacy packets of your medications, please follow-up with your primary care in the next 7-10 days for reevaluation - My Orders Last 24 Hours: My Active Orders 08/07/17 14:52 EKG Documentation Completion [RC] ASDIRECTED EKG 12 Lead [EK] Stat 08/07/17 15:46 UA W/MICROSCOPIC [URIN] Urgent - Assessment/Plan Last 24 Hours: My Active Orders 08/07/17 14:52 EKG Documentation Completion [RC] ASDIRECTED EKG 12 Lead [EK] Stat 08/07/17 15:46 UA W/MICROSCOPIC [URIN] Urgent Plan: Assessment Acuity = acute Site and laterality = fatigue and palpitations Etiology = unclear etiology possibly related to lisinopril in the morning Manifestations = none Location of injury = Home Lab values = CBC, CMP, thyroid normal at 1.8, urinalysis unremarkable Plan She admits that she is taking Lipitor in the morning and atorvastatin in the evening also takes lisinopril in the morning recommend that she stop atorvastatin only take Lipitor and lisinopril in the evening no change in her metformin dose follow-up with primary care in 7-10 days This note was dictated using [employer] voice recognition software please call with any questions on syntax or itzel.
[2017-08-07 16:18] VITALS: BP 172/85
== END 2017-08-07 16:50 | disposition home or self-care (01) ==
LOC: JP.ED 12:45
DX: R00.2 Palpitations (principal); E11.9 Type 2 diabetes mellitus without complications; I10 Essential (primary) hypertension; E78.00 Pure hypercholesterolemia, unspecified; Z88.5 Allergy status to narcotic agent; Z79.899 Other long term (current) drug therapy; Z88.1 Allergy status to other antibiotic agents; Z79.84 Long term (current) use of oral hypoglycemic drugs
CPT/HCPCS: 36415; 80048; 81001; 84443; 85025; 93005; 93010; 99284; 99285-25

== ENCOUNTER 2018-09-02 05:27 | Inpatient (IN) | payer MEDICARE, OTHER ==
[2018-09-02] MEDS ORDERED: Nozin Nasal Sanitizer NASBOTH ONE (06:00)
[2018-09-02] MEDS ORDERED: Acetaminophen 500 MG Tab PO ONE (06:00)
[2018-09-02] MEDS ORDERED: ceFAZolin 2 GM in Premix Bag 1 BAG IV ONE (06:00)
[2018-09-02] MEDS ORDERED: Scopolamine 1.5 MG Transdermal Patch TOP SCH (06:00)
[2018-09-02] MEDS: Nozin Nasal Sanitizer NASBOTH SCH ×3 (06:05→21:10)
[2018-09-02] MEDS ORDERED: Povidone-Iodine 10% Soln 118.25 ML Bottle ONE (06:33)
[2018-09-02] MEDS: Lactated Ringers 1,000 ML IV SCH ×2 (07:03→19:04)
[2018-09-02] MEDS ORDERED: Propofol 200 MG/20 ML SDV ONE (07:31)
[2018-09-02] MEDS ORDERED: fentaNYL 100 MCG/2 ML SDV ONE (07:31)
[2018-09-02] MEDS ORDERED: Midazolam 1 MG/ML 2 ML SDV ONE (07:31)
[2018-09-02] MEDS ORDERED: Sodium Chloride 0.9% 10 ML ONE (08:07)
[2018-09-02] MEDS ORDERED: ePHEDrine 50 MG/ML SDV ONE (08:07)
[2018-09-02] MEDS ORDERED: ceFAZolin 1 GM in Sodium Chloride 0.9% 50 ML IV SCH (09:15)
[2018-09-02] MEDS ORDERED: Acetaminophen/oxyCODONE 325-5 MG Tab PO PRN (09:21)
[2018-09-02] MEDS ORDERED: Docusate Sodium 100 MG Cap PO PRN (09:26)
[2018-09-02] MEDS ORDERED: Enoxaparin 30 MG/0.3 ML Syringe SUBCUT SCH (09:30)
--- NOTE | 2018-09-02 09:49 | CR ---
Hip Min 1V Lt CLINICAL HISTORY: Previous surgery FINDINGS: Patient has had a previous left hip arthroplasty. Components appear well seated. No fracture seen Impression: Patient is status post left hip arthroplasty IMPRESSION: Negative left ribs.
[2018-09-02] MEDS ORDERED: Acetaminophen 325 MG Tab PO PRN (10:30)
[2018-09-02] MEDS: Morphine 2 MG/ML Syringe IVPUSH PRN ×4 (11:39→21:24)
[2018-09-02] MEDS: Acetaminophen/oxyCODONE 325-5 MG Tab PO PRN ×3 (11:50→23:01)
[2018-09-02] MEDS: Acetaminophen/HYDROcodone 325-5 MG Tab PO PRN (13:38)
[2018-09-02] MEDS: ceFAZolin 1 GM in Premix Bag 1 BAG IV SCH ×2 (14:30→21:30)
[2018-09-02] MEDS ORDERED: Non-Formulary Medication 1 Each (Atorvastatin [Lipitor] 80 MG) PO SCH ×2 (21:00)
[2018-09-02] MEDS ORDERED: metFORMIN 500 MG Tab.ER PO SCH (21:00)
[2018-09-02] MEDS: metFORMIN 500 MG Tab.ER PO SCH (21:10)
[2018-09-02] MEDS: atorvaSTATin 20 MG Tab PO SCH (21:11)
[2018-09-02] MEDS: Enoxaparin 30 MG/0.3 ML Syringe SUBCUT SCH (21:11)
[2018-09-03] MEDS: ceFAZolin 1 GM in Premix Bag 1 BAG IV SCH (05:38)
[2018-09-03] MEDS: Acetaminophen/oxyCODONE 325-5 MG Tab PO PRN (05:39)
[2018-09-03] MEDS: Acetaminophen/HYDROcodone 325-5 MG Tab PO PRN ×3 (08:02→21:22)
[2018-09-03] MEDS: metFORMIN 500 MG Tab.ER PO SCH ×2 (08:04→21:02)
[2018-09-03] MEDS: Lisinopril 20 MG Tab PO SCH (08:04)
[2018-09-03] MEDS: Nozin Nasal Sanitizer NASBOTH SCH ×2 (08:05→21:03)
[2018-09-03] MEDS ORDERED: Lisinopril 20 MG Tab PO SCH (09:00)
--- NOTE | 2018-09-03 10:07 | PCM.SURGPN ---
- General Info Date of Service: 09/03/18 Date of Surgery/Procedure: 09/02/18 POD#: 1 Post-Op Diagnosis: S/P left total hip Admission Diagnosis/Problem: Osteoarthritis of hip Functional Status: Reports: Pain Controlled - Review of Systems General: Reports: No Symptoms HEENT: Reports: No Symptoms Pulmonary: Reports: No Symptoms Cardiovascular: Reports: No Symptoms Gastrointestinal: Reports: No Symptoms Neurological: Reports: No Symptoms Psychiatric: Reports: No Symptoms Systems Review Comment:: Did very well overnight reports that she slept thru the night. Up in chair this am for breakfast. - Patient Data Vitals - Most Recent: Last Vital Signs Temp 36.9 C 09/03/18 07:00 Pulse 68 09/03/18 07:00 Resp 16 09/03/18 07:00 BP 123/52 L 09/03/18 08:04 Pulse Ox 93 L 09/03/18 07:00 Weight - Most Recent: 72.983 kg I&O - Last 24 Hours: Intake & Output 09/02/18 09/03/18 09/03/18 22:59 06:59 14:59 Intake Total 910 1084 Output Total 350 770 Balance 560 314 Lab Results Last 24 Hrs: Laboratory Results - last 24 hr 09/03/18 Range/Units 04:47 WBC 8.4 (4.5-11.0) K/uL RBC 3.77 (3.30-5.50) M/uL Hgb 11.1 L (12.0-15.0) g/dL Hct 35.8 L (36.0-48.0) % MCV 95 (80-98) fL MCH 29 (27-31) pg MCHC 31 L (32-36) % Plt Count 314 (150-400) K/uL Med Orders - Current: Current Medications Acetaminophen (Tylenol) 650 mg PO Q4H PRN PRN Reason: Pain/Fever Hydrocodone Bitart/Acetaminophen ([place] 325-5 Mg) 1 tab PO Q3H PRN PRN Reason: Pain (mild 1-3) Last Admin: 09/03/18 08:02 Dose: 1 tab Atorvastatin Calcium (Lipitor) 80 mg PO BEDTIME [facility]I Last Admin: 09/02/18 21:11 Dose: 80 mg Bandage/Support Products ( Nasal Client Resource Specialist) 1 applic NASBOTH BID [facility]I Stop: 09/09/18 21:01 Last Admin: 09/03/18 08:05 Dose: 1 applic Docusate Sodium (Colace) 100 mg PO BID PRN PRN Reason: Constipation Enoxaparin Sodium (Lovenox) 30 mg SUBCUT BEDTIME [facility] Last Admin: 09/02/18 21:11 Dose: 30 mg Lactated Ringer's (Ringers, Lactated) 1,000 mls @ 75 mls/hr IV ASDIRECTED [facility] Last Admin: 09/02/18 19:04 Dose: 75 mls/hr Lisinopril (Prinivil) 20 mg PO DAILY [facility] Last Admin: 09/03/18 08:04 Dose: 20 mg Metformin HCl (Glucophage Xr) 500 mg PO BID [facility] Last Admin: 09/03/18 08:04 Dose: 500 mg Morphine Sulfate (Morphine) 2 mg IVPUSH Q1H PRN PRN Reason: Pain (severe 7-10) Last Admin: 09/02/18 21:24 Dose: 2 mg Oxycodone/Acetaminophen (Percocet 325-5 Mg) 1 - 2 tab PO Q6H PRN PRN Reason: Pain (severe 7-10) Last Admin: 09/03/18 05:39 Dose: 1 tab Scopolamine (Transderm-Scop) 1.5 mg TOP Q72H [facility] Stop: 09/04/18 06:01 Last Admin: 09/02/18 06:03 Dose: 1.5 mg Discontinued Medications Acetaminophen (Tylenol Extra Strength) 1,000 mg PO ONETIME ONE Stop: 09/02/18 06:01 Last Admin: 09/02/18 06:02 Dose: 1,000 mg Bandage/Support Products ( Nasal Client Resource Specialist) 1 applic NASBOTH ONETIME ONE Stop: 09/02/18 06:01 Bandage/Support Products ( Nasal Client Resource Specialist) 1 applic NASBOTH BID [facility] Last Admin: 09/02/18 12:07 Dose: Not Given Enoxaparin Sodium (Lovenox) 30 mg SUBCUT Q24H [facility] Last Admin: 09/02/18 12:07 Dose: Not Given Ephedrine Sulfate (Ephedrine Sulfate) Confirm Administered Dose 50 mg .ROUTE .STK-MED ONE Stop: 09/02/18 08:08 Fentanyl (Sublimaze) Confirm Administered Dose 100 mcg .ROUTE .STK-MED ONE Stop: 09/02/18 07:32 Cefazolin Sodium/Dextrose 2 gm (/ Premix) 50 mls @ 100 mls/hr IV ONETIME ONE Stop: 09/02/18 06:29 Last Admin: 09/02/18 07:29 Dose: 100 mls/hr Sodium Chloride (Normal Saline) Confirm Administered Dose 10 mls @ as directed .ROUTE .STK-MED ONE Stop: 09/02/18 08:08 Cefazolin Sodium 1 gm/ Sodium (Chloride) 50 mls @ 200 mls/hr IV Q8H [facility] Stop: 09/03/18 01:29 Last Admin: 09/02/18 12:07 Dose: Not Given Cefazolin Sodium/Dextrose 1 gm (/ Premix) 50 mls @ 100 mls/hr IV Q8H [facility] Stop: 09/03/18 06:59 Last Admin: 09/03/18 05:38 Dose: 100 mls/hr Lisinopril (Prinivil) 20 mg PO DAILY [facility] Metformin HCl (Glucophage Xr) 500 mg PO BID [facility] Midazolam HCl (Versed 1 Mg/Ml) Confirm Administered Dose 2 mg .ROUTE .STK-MED ONE Stop: 09/02/18 07:32 Non-Formulary Medication (Atorvastatin [Lipitor]) 80 mg PO BEDTIME [facility] Oxycodone/Acetaminophen (Percocet 325-5 Mg) 0 tab PO Q6H PRN PRN Reason: Pain (severe 7-10) Povidone Iodine (Betadine 10% Soln) Confirm Administered Dose 1 ml .ROUTE .STK- MED ONE Stop: 09/02/18 06:34 Last Admin: 09/02/18 08:12 Dose: 40 ml Propofol (Diprivan 20 Ml) Confirm Administered Dose 200 mg .ROUTE .STK-MED ONE Stop: 09/02/18 07:32 - Exam Wound/Incisions: Dressing Dry and Intact General: Alert, Oriented HEENT: Pupils Equal Lungs: Clear to Auscultation, Normal Respiratory Effort Extremities: Normal Inspection, Normal Range of Motion, Non-Tender, No Pedal Edema, Normal Capillary Refill Neurological: No New Focal Deficit Psy/Mental Status: Alert (no significant swelling of the leg/calf. Negin's negative.), Normal Affect, Normal Mood - Problem List & Annotations (1) Status post total hip replacement, left SNOMED Code(s): 641877150732, 840897112960 Code(s): Z96.642 - PRESENCE OF LEFT ARTIFICIAL HIP JOINT Status: Acute Current Visit: Yes - Problem List Review Problem List Initiated/Reviewed/Updated: Yes - My Orders Last 24 Hours: Active Orders 24 hr Category Date Time Status Patient Status [ADT] Routine ADT 09/02/18 09:15 Active Ambulate [RC] PER UNIT ROUTINE Care 09/02/18 09:15 Active Antiembolic Devices [RC] .Routine Care 09/02/18 09:15 Active Antiembolic Devices [RC] .Routine Care 09/02/18 09:16 Active Blood Glucose Check, Bedside [RC] BIDMEALS Care 09/02/18 09:27 Active Head of Bed Elevation [RC] ASDIRECTED Care 09/02/18 09:15 Active Intake and Output [RC] PER UNIT ROUTINE Care 09/02/18 09:15 Active Neurovascular Check [RC] BID Care 09/02/18 09:15 Active Notify Provider Vital Signs [RC] ASDIRECTED Care 09/02/18 09:15 Active Pneumonia Education [RC] UPON Care 09/02/18 09:15 Active Pulse Oximetry [RC] INTERMITTENT Care 09/02/18 09:15 Active RT Incentive Spirometry [RC] Q1HWA Care 09/02/18 09:15 Active Up to Chair [RC] QID Care 09/02/18 09:15 Active VTE/DVT Education [RC] Click to Edit Care 09/02/18 09:16 Active Vital Signs [RC] PER UNIT ROUTINE Care 09/02/18 09:15 Active Wound Care [RC] Q12H Care 09/02/18 09:15 Active Consult to Occupational Therapy [OT Evaluation and Cons 09/02/18 09:20 Active Treatment] [CONS] Routine PT Evaluation and Treatment [CONS] Routine Cons 09/02/18 09:15 Active Regular Diet [DIET] Diet 09/02/18 Dinner Active Acetaminophen [Tylenol] Med 09/02/18 10:30 Active 650 mg PO Q4H PRN Acetaminophen/HYDROcodone [[place] 325-5 MG] Med 09/02/18 09:15 Active 1 tab PO Q3H PRN Acetaminophen/oxyCODONE [Percocet 325-5 MG] Med 09/02/18 10:02 Active 1 - 2 tab PO Q6H PRN Docusate Sodium [Colace] Med 09/02/18 09:26 Active 100 mg PO BID PRN Enoxaparin [Lovenox] Med 09/02/18 21:00 Active 30 mg SUBCUT BEDTIME Lisinopril [Prinivil] Med 09/03/18 09:00 Active 20 mg PO DAILY Morphine Med 09/02/18 09:24 Active 2 mg IVPUSH Q1H PRN Nozin [ Nasal Client Resource Specialist] Med 09/02/18 21:00 Active 1 applic NASBOTH BID atorvaSTATin [Lipitor] Med 09/02/18 21:00 Active 80 mg PO BEDTIME metFORMIN [Glucophage XR] Med 09/02/18 21:00 Active 500 mg PO BID Antiembolic Hose [OM.PC] Per Unit Routine Oth 09/02/18 09:15 Ordered DME for Inpatients [OM.PC] Routine Oth 09/02/18 09:15 Ordered DVT/VTE Prophylaxis Reflex [OM.PC] Routine Oth 09/02/18 09:15 Ordered Ice Therapy [OM.PC] Per Unit Routine Oth 09/02/18 09:15 Ordered Oral Care [OM.PC] Routine Oth 09/02/18 09:15 Ordered Sequential Compression Device [OM.PC] Routine Oth 09/02/18 09:15 Ordered Weight bearing status [OM.PC] Routine Oth 09/02/18 09:15 Ordered Resuscitation Status Routine Resus Stat 09/02/18 09:15 Ordered Medication Orders Acetaminophen (Tylenol) 650 mg PO Q4H PRN PRN Reason: Pain/Fever Hydrocodone Bitart/Acetaminophen ([place] 325-5 Mg) 1 tab PO Q3H PRN PRN Reason: Pain (mild 1-3) Last Admin: 09/03/18 08:02 Dose: 1 tab Admin: 09/02/18 13:38 Dose: 1 tab Atorvastatin Calcium (Lipitor) 80 mg PO BEDTIME [facility] Last Admin: 09/02/18 21:11 Dose: 80 mg Bandage/Support Products ( Nasal Client Resource Specialist) 1 applic NASBOTH BID [facility] Stop: 09/09/18 21:01 Last Admin: 09/03/18 08:05 Dose: 1 applic Admin: 09/02/18 21:10 Dose: 1 applic Docusate Sodium (Colace) 100 mg PO BID PRN PRN Reason: Constipation Enoxaparin Sodium (Lovenox) 30 mg SUBCUT BEDTIME [facility] Last Admin: 09/02/18 21:11 Dose: 30 mg Lactated Ringer's (Ringers, Lactated) 1,000 mls @ 75 mls/hr IV ASDIRECTED [facility] Last Admin: 09/02/18 19:04 Dose: 75 mls/hr Infusion: 09/02/18 19:04 Dose: 75 mls/hr Admin: 09/02/18 07:03 Dose: 75 mls/hr Lisinopril (Prinivil) 20 mg PO DAILY [facility] Last Admin: 09/03/18 08:04 Dose: 20 mg Metformin HCl (Glucophage Xr) 500 mg PO BID [facility] Last Admin: 09/03/18 08:04 Dose: 500 mg Admin: 09/02/18 21:10 Dose: 500 mg Morphine Sulfate (Morphine) 2 mg IVPUSH Q1H PRN PRN Reason: Pain (severe 7-10) Last Admin: 09/02/18 21:24 Dose: 2 mg Admin: 09/02/18 14:08 Dose: 2 mg Admin: 09/02/18 12:46 Dose: 2 mg Admin: 09/02/18 11:39 Dose: 2 mg Oxycodone/Acetaminophen (Percocet 325-5 Mg) 1 - 2 tab PO Q6H PRN PRN Reason: Pain (severe 7-10) Last Admin: 09/03/18 05:39 Dose: 1 tab Admin: 09/02/18 23:01 Dose: 2 tab Admin: 09/02/18 16:44 Dose: 2 tab Admin: 09/02/18 11:50 Dose: 1 tab Scopolamine (Transderm-Scop) 1.5 mg TOP Q72H [facility] Stop: 09/04/18 06:01 Last Admin: 09/02/18 06:03 Dose: 1.5 mg - Assessment Assessment (Free Text/Narrative):: Doing well POD#1, no complications - Plan Plan (Free Text/Narrative):: Continue PT/OT, saline lock IV.
[2018-09-03] MEDS: atorvaSTATin 20 MG Tab PO SCH (21:02)
[2018-09-03] MEDS: Enoxaparin 30 MG/0.3 ML Syringe SUBCUT SCH (21:03)
[2018-09-04] MEDS: Acetaminophen/HYDROcodone 325-5 MG Tab PO PRN ×3 (00:42→21:19)
[2018-09-04] MEDS: metFORMIN 500 MG Tab.ER PO SCH ×2 (08:47→21:20)
[2018-09-04] MEDS: Nozin Nasal Sanitizer NASBOTH SCH ×2 (08:47→21:16)
[2018-09-04] MEDS: Lisinopril 20 MG Tab PO SCH (08:47)
--- NOTE | 2018-09-04 12:17 | PCM.SURGPN ---
- General Info Date of Service: 09/04/18 Date of Surgery/Procedure: 09/02/18 POD#: 2 Post-Op Diagnosis: S/P left total hip Functional Status: Reports: Pain Controlled - Review of Systems General: Reports: No Symptoms HEENT: Reports: No Symptoms Pulmonary: Reports: No Symptoms Cardiovascular: Reports: No Symptoms Gastrointestinal: Reports: No Symptoms Genitourinary: Reports: No Symptoms Skin: Reports: No Symptoms Neurological: Reports: No Symptoms Psychiatric: Reports: No Symptoms - Patient Data Vitals - Most Recent: Last Vital Signs Temp 36.2 C 09/04/18 10:24 Pulse 71 09/04/18 10:24 Resp 16 09/04/18 10:24 BP 120/41 L 09/04/18 10:24 Pulse Ox 96 09/04/18 10:24 Weight - Most Recent: 72.983 kg I&O - Last 24 Hours: Intake & Output 09/03/18 09/04/18 09/04/18 22:59 06:59 14:59 Intake Total 1875 Output Total 600 Balance 1875 -600 Med Orders - Current: Current Medications Acetaminophen (Tylenol) 650 mg PO Q4H PRN PRN Reason: Pain/Fever Hydrocodone Bitart/Acetaminophen ([place] 325-5 Mg) 1 tab PO Q3H PRN PRN Reason: Pain (mild 1-3) Last Admin: 09/04/18 07:40 Dose: 1 tab Atorvastatin Calcium (Lipitor) 80 mg PO BEDTIME [facility] Last Admin: 09/03/18 21:02 Dose: 80 mg Bandage/Support Products ( Nasal Psychological Operations Specialist) 1 applic NASBOTH BID [facility] Stop: 09/09/18 21:01 Last Admin: 09/04/18 08:47 Dose: 1 applic Docusate Sodium (Colace) 100 mg PO BID PRN PRN Reason: Constipation Last Admin: 09/03/18 16:44 Dose: 100 mg Enoxaparin Sodium (Lovenox) 30 mg SUBCUT BEDTIME [facility] Last Admin: 09/03/18 21:03 Dose: 30 mg Lisinopril (Prinivil) 20 mg PO DAILY [facility] Last Admin: 09/04/18 08:47 Dose: 20 mg Metformin HCl (Glucophage Xr) 500 mg PO BID [facility] Last Admin: 09/04/18 08:47 Dose: 500 mg Oxycodone/Acetaminophen (Percocet 325-5 Mg) 1 - 2 tab PO Q6H PRN PRN Reason: Pain (severe 7-10) Last Admin: 09/03/18 05:39 Dose: 1 tab Discontinued Medications Acetaminophen (Tylenol Extra Strength) 1,000 mg PO ONETIME ONE Stop: 09/02/18 06:01 Last Admin: 09/02/18 06:02 Dose: 1,000 mg Bandage/Support Products ( Nasal Psychological Operations Specialist) 1 applic NASBOTH ONETIME ONE Stop: 09/02/18 06:01 Bandage/Support Products ( Nasal Psychological Operations Specialist) 1 applic NASBOTH BID [facility] Last Admin: 09/02/18 12:07 Dose: Not Given Enoxaparin Sodium (Lovenox) 30 mg SUBCUT Q24H [facility] Last Admin: 09/02/18 12:07 Dose: Not Given Ephedrine Sulfate (Ephedrine Sulfate) Confirm Administered Dose 50 mg .ROUTE .STK-MED ONE Stop: 09/02/18 08:08 Fentanyl (Sublimaze) Confirm Administered Dose 100 mcg .ROUTE .STK-MED ONE Stop: 09/02/18 07:32 Cefazolin Sodium/Dextrose 2 gm (/ Premix) 50 mls @ 100 mls/hr IV ONETIME ONE Stop: 09/02/18 06:29 Last Admin: 09/02/18 07:29 Dose: 100 mls/hr Lactated Ringer's (Ringers, Lactated) 1,000 mls @ 75 mls/hr IV ASDIRECTED [facility] Last Admin: 09/02/18 19:04 Dose: 75 mls/hr Sodium Chloride (Normal Saline) Confirm Administered Dose 10 mls @ as directed .ROUTE .STK-MED ONE Stop: 09/02/18 08:08 Cefazolin Sodium 1 gm/ Sodium (Chloride) 50 mls @ 200 mls/hr IV Q8H [facility] Stop: 09/03/18 01:29 Last Admin: 09/02/18 12:07 Dose: Not Given Cefazolin Sodium/Dextrose 1 gm (/ Premix) 50 mls @ 100 mls/hr IV Q8H [facility] Stop: 09/03/18 06:59 Last Admin: 09/03/18 05:38 Dose: 100 mls/hr Lisinopril (Prinivil) 20 mg PO DAILY [facility] Metformin HCl (Glucophage Xr) 500 mg PO BID [facility] Midazolam HCl (Versed 1 Mg/Ml) Confirm Administered Dose 2 mg .ROUTE .STK-MED ONE Stop: 09/02/18 07:32 Morphine Sulfate (Morphine) 2 mg IVPUSH Q1H PRN PRN Reason: Pain (severe 7-10) Last Admin: 09/02/18 21:24 Dose: 2 mg Non-Formulary Medication (Atorvastatin [Lipitor]) 80 mg PO BEDTIME [facility] Oxycodone/Acetaminophen (Percocet 325-5 Mg) 0 tab PO Q6H PRN PRN Reason: Pain (severe 7-10) Povidone Iodine (Betadine 10% Soln) Confirm Administered Dose 1 ml .ROUTE .STK- MED ONE Stop: 09/02/18 06:34 Last Admin: 09/02/18 08:12 Dose: 40 ml Propofol (Diprivan 20 Ml) Confirm Administered Dose 200 mg .ROUTE .STK-MED ONE Stop: 09/02/18 07:32 Scopolamine (Transderm-Scop) 1.5 mg TOP Q72H [facility] Stop: 09/04/18 06:01 Last Admin: 09/02/18 06:03 Dose: 1.5 mg - Exam Wound/Incisions: Healing Well General: Alert, Oriented HEENT: Pupils Equal Neck: Supple Lungs: Clear to Auscultation, Normal Respiratory Effort Cardiovascular: Regular Rate, Regular Rhythm GI/Abdominal Exam: Normal Bowel Sounds, Soft, Non-Tender, No Organomegaly, No Distention, No Abnormal Bruit, No Mass, Pelvis Stable Skin: Warm, Dry, Intact Neurological: No New Focal Deficit Psy/Mental Status: Alert, Normal Affect, Normal Mood Physical Findings Comment:: No swelling in left leg, Negin's negative, incision looks good. - Problem List & Annotations (1) Status post total hip replacement, left SNOMED Code(s): 600905069341, 204843237760 Code(s): Z96.642 - PRESENCE OF LEFT ARTIFICIAL HIP JOINT Status: Acute Current Visit: Yes - Problem List Review Problem List Initiated/Reviewed/Updated: No - My Orders Last 24 Hours: Active Orders 24 hr Category Date Time Status Communication Order [RC] ASDIRECTED Care 09/04/18 10:39 Active GLUCOSE POC LAB TO COLLECT [POC] BID Lab 09/04/18 17:45 Ordered GLUCOSE POC LAB TO COLLECT [POC] BID Lab 09/05/18 17:45 Ordered GLUCOSE POC LAB TO COLLECT [POC] BID Lab 09/06/18 17:45 Ordered GLUCOSE POC LAB TO COLLECT [POC] BID Lab 09/07/18 17:45 Ordered GLUCOSE POC LAB TO COLLECT [POC] BID Lab 09/08/18 17:45 Ordered Peripheral IV Discontinue [OM.PC] Routine Oth 09/03/18 16:41 Ordered Remove Dressing [OM.PC] Routine Oth 09/04/18 10:39 Ordered Medication Orders Acetaminophen (Tylenol) 650 mg PO Q4H PRN PRN Reason: Pain/Fever Hydrocodone Bitart/Acetaminophen ([place] 325-5 Mg) 1 tab PO Q3H PRN PRN Reason: Pain (mild 1-3) Last Admin: 09/04/18 07:40 Dose: 1 tab Admin: 09/04/18 00:42 Dose: 1 tab Admin: 09/03/18 21:22 Dose: 1 tab Admin: 09/03/18 16:43 Dose: 1 tab Admin: 09/03/18 08:02 Dose: 1 tab Admin: 09/02/18 13:38 Dose: 1 tab Atorvastatin Calcium (Lipitor) 80 mg PO BEDTIME [facility] Last Admin: 09/03/18 21:02 Dose: 80 mg Admin: 09/02/18 21:11 Dose: 80 mg Bandage/Support Products ( Nasal Psychological Operations Specialist) 1 applic NASBOTH BID [facility] Stop: 09/09/18 21:01 Last Admin: 09/04/18 08:47 Dose: 1 applic Admin: 09/03/18 21:03 Dose: 1 applic Admin: 09/03/18 08:05 Dose: 1 applic Admin: 09/02/18 21:10 Dose: 1 applic Docusate Sodium (Colace) 100 mg PO BID PRN PRN Reason: Constipation Last Admin: 09/03/18 16:44 Dose: 100 mg Enoxaparin Sodium (Lovenox) 30 mg SUBCUT BEDTIME [facility] Last Admin: 09/03/18 21:03 Dose: 30 mg Admin: 09/02/18 21:11 Dose: 30 mg Lisinopril (Prinivil) 20 mg PO DAILY [facility] Last Admin: 09/04/18 08:47 Dose: 20 mg Admin: 09/03/18 08:04 Dose: 20 mg Metformin HCl (Glucophage Xr) 500 mg PO BID [facility] Last Admin: 09/04/18 08:47 Dose: 500 mg Admin: 09/03/18 21:02 Dose: 500 mg Admin: 09/03/18 08:04 Dose: 500 mg Admin: 09/02/18 21:10 Dose: 500 mg Oxycodone/Acetaminophen (Percocet 325-5 Mg) 1 - 2 tab PO Q6H PRN PRN Reason: Pain (severe 7-10) Last Admin: 09/03/18 05:39 Dose: 1 tab Admin: 09/02/18 23:01 Dose: 2 tab Admin: 09/02/18 16:44 Dose: 2 tab Admin: 09/02/18 11:50 Dose: 1 tab - Assessment Assessment (Free Text/Narrative):: Doing very well with PT, up in jacob twice this am. Voiding without Lester. Pain controlled with minimal medication. - Plan Plan (Free Text/Narrative):: Continue to work on transfers in/out of bed and chair. Dressing change today, OK to shower. Planning transfer to SNF tomorrow.
--- NOTE | 2018-09-04 15:15 | OR ---
DATE OF PROCEDURE: 09/02/2018 PREOPERATIVE DIAGNOSIS: End-stage osteoarthritis, left hip. POSTOPERATIVE DIAGNOSIS: End-stage osteoarthritis, left hip. PROCEDURE: Left total hip arthroplasty using Alisa trabecular metal cup size 56, 7.5 M/L taper stem, and 40 mm -3.5 mm neck length head. ANESTHESIA: Spinal with sedation. INDICATIONS: Sri is a very pleasant 88-year-old female with a history of progressive left hip pain and loss of motion over the past few years. It has gotten significantly worse in the past several months. X-rays reveal severe end-stage osteoarthritis with complete joint space collapse and erosion of the femoral head. She now presents for left total hip arthroplasty. Risks, benefits and potential complications were discussed. DESCRIPTION OF PROCEDURE: After adequate anesthesia was obtained, the patient was placed in the lateral decubitus position and secured with the hip positioner. The left hip and leg were then prepped and draped in sterile fashion. It should be noted that the hip had minimal range of motion with less than 10 degrees of abduction and almost no internal and external rotation. An incision was made over the greater trochanter and carried down through the subcutaneous tissues. Hemostasis was obtained with electrocautery. Tensor fascia was divided in line with its fibers and a Charnley retractor was placed. Short external rotators were taken off the greater trochanter, and the capsule was then divided. Once the capsule was released, this allowed some motion at the hip joint with dislocation of the hip. Retractor was placed about the femoral neck. An oscillating saw was then used to make a femoral neck cut. Significant deformity of the head was noted. Retractors were then placed about the acetabulum, and the acetabular labrum was excised. Soft tissues were cleared from the central portion of the acetabulum. This was then sequentially reamed to 56 mm, which provided good subchondral bone. A 56-mm trabecular metal Continuum cup was then press-fit into place. This had excellent fixation. Impactor was removed, and the cup was confirmed to be seated. This was irrigated and a polyethylene liner was then tapped into position for a 40-mm head. It was irrigated once again. Retractors were removed. Attention was then turned to the proximal femur. A box osteotome was used to remove the lateral femoral neck cortex. An awl was placed down the canal, and the canal was then sequentially broached to a size 7.5. A trial reduction was made with a -3.5 neck length providing good mosque of limb lengths. The trials were removed. The hip was irrigated. M/L taper stem was then press-fit into position. A -3.5 head was then tapped onto the taper, and the hip was reduced. This was taken through range of motion. It was found to be stable in flexion, abduction, and internal rotation. Full extension was obtained and good limb lengths were noted. The hip was then irrigated. The capsule was then closed with a #1 Ethibond suture. Tensor fascia was closed with a #1 Ethibond in a running fashion. Skin was closed with 2-0 Vicryl and a running 3-0 Monocryl. Steri-Strips were applied. Sterile dressing was then placed. The patient tolerated the procedure well. There were no complications and was taken from the operating room in a stable condition. Yoni Gamez MD /[id number]
[2018-09-04] MEDS: Acetaminophen/oxyCODONE 325-5 MG Tab PO PRN (17:41)
[2018-09-04] MEDS: Enoxaparin 30 MG/0.3 ML Syringe SUBCUT SCH (21:20)
[2018-09-04] MEDS: atorvaSTATin 20 MG Tab PO SCH (21:20)
[2018-09-05] MEDS: metFORMIN 500 MG Tab.ER PO SCH (08:57)
[2018-09-05] MEDS: Nozin Nasal Sanitizer NASBOTH SCH (08:58)
[2018-09-05] MEDS: Lisinopril 20 MG Tab PO SCH (08:58)
--- NOTE | 2018-09-05 09:09 | PCM.DCSUM1 ---
Discharge Summary - Hospital Course Free Text/Narrative:: 88 y/o female with progressive pain and loss of ROM of left hip. Severe osteoarthritis admitted for elective MOSHE. Diagnosis: Stroke: No - Discharge Data Discharge Date: 09/05/18 Discharge Disposition: DC/Tfer to SNF 03 Condition: Good - Discharge Diagnosis/Problem(s) (1) Status post total hip replacement, left SNOMED Code(s): 940301527573, [id number] ICD Code: Z96.642 - PRESENCE OF LEFT ARTIFICIAL HIP JOINT Status: Acute Current Visit: Yes - Patient Summary/Data Operative Procedure(s) Performed: Left total hip arthroplasty Complications: None Consults: Consultations 09/02/18 09:15 PT Evaluation and Treatment [CONS] Routine Please Evaluate and Treat. PT Reason for Consult: Ambulation Discharge Disposition: Home w Home Health Special Instructions: posterior hip precautions, WBAT This query below is only for informational purposes and is not editable. 09/02/18 09:20 Consult to Occupational Therapy [OT Evaluation and Treatment] [CONS] Routine Please Evaluate and Treat. OT Reason for Consult: ADL's Pending Discharge: Yes Discharge Disposition: Home w Home Health Special Instructions: assistive devices This query below is only for informational purposes and is not editable. Hospital Course: Underwent Left MOSHE without complication. Did well post-operatively. Tolerated PT/OT. Up in halls, ambulating full weight bearing. Requiring minimal pain medications. Dressing changed POD#2, no complications of concerns. - Patient Instructions Diet: Usual Diet as Tolerated Activity: As Tolerated Activity, Other: Posterior hip precautions Driving: Do Not Drive Showering/Bathing: May Shower Wound/Incision, Other: Light dressing left hip as needed Notify Provider of: Fever, Increased Pain, Swelling and Redness, Drainage - Discharge Plan *PRESCRIPTION DRUG MONITORING PROGRAM REVIEWED*: No *COPY OF PRESCRIPTION DRUG MONITORING REPORT IN PATIENT BILLY: No Home Medications: Home Meds Lisinopril 20 mg PO DAILY 01/29/13 [History] atorvaSTATin [Lipitor] 80 mg PO BEDTIME 01/29/13 [History] metFORMIN [metFORMIN XR] 500 mg PO BID 01/29/13 [History] cephALEXin [Keflex] 250 mg PO .M,W,F 11/01/13 [History] Cholecalciferol (Vitamin D3) [Vitamin D] 5,000 unit PO DAILY 03/08/17 [History] Enid-3 Fatty Acids [Enid-3] 1 tab PO BID 03/08/17 [History] Ubidecarenone [Coenzyme Q10] 400 mg PO DAILY 03/08/17 [History] Oxygen Therapy Mode: Room Air Patient Handouts: Total Hip Replacement, Posterior, Care After Referrals: Yoni Gamez MD [Physician] - 09/17/18 10:30 am (Please arrive 15 minutes early to register for your appointment. Please register for your appointment at the ER desk.) - Discharge Summary/Plan Comment DC Time >30 min.: No Discharge Summary/Plan Comment: Transfer to [facility] today. Continue PT/OT with posterior hip precautions. Lovenox subq for 2 weeks. Follow up in ortho clinic in 2 weeks. - Patient Data Vitals - Most Recent: Last Vital Signs Temp 37.1 C 09/05/18 07:49 Pulse 82 09/05/18 07:49 Resp 16 09/05/18 07:49 BP 133/47 L 09/05/18 08:58 Pulse Ox 95 09/05/18 07:49 Weight - Most Recent: 72.983 kg I&O - Last 24 hours: Intake & Output 09/04/18 09/05/18 09/05/18 22:59 06:59 14:59 Intake Total 1200 Balance 1200 Med Orders - Current: Current Medications Acetaminophen (Tylenol) 650 mg PO Q4H PRN PRN Reason: Pain/Fever Hydrocodone Bitart/Acetaminophen ([place] 325-5 Mg) 1 tab PO Q3H PRN PRN Reason: Pain (mild 1-3) Last Admin: 09/04/18 21:19 Dose: 1 tab Atorvastatin Calcium (Lipitor) 80 mg PO BEDTIME AMI Last Admin: 09/04/18 21:20 Dose: 80 mg Bandage/Support Products ( Nasal Translator/Interpreter) 1 applic NASBOTH BID AMI Stop: 09/09/18 21:01 Last Admin: 09/05/18 08:58 Dose: 1 applic Docusate Sodium (Colace) 100 mg PO BID PRN PRN Reason: Constipation Last Admin: 09/03/18 16:44 Dose: 100 mg Enoxaparin Sodium (Lovenox) 30 mg SUBCUT BEDTIME AMI Last Admin: 09/04/18 21:20 Dose: 30 mg Lisinopril (Prinivil) 20 mg PO DAILY [facility] Last Admin: 09/05/18 08:58 Dose: 20 mg Metformin HCl (Glucophage Xr) 500 mg PO BID [facility] Last Admin: 09/05/18 08:57 Dose: 500 mg Oxycodone/Acetaminophen (Percocet 325-5 Mg) 1 - 2 tab PO Q6H PRN PRN Reason: Pain (severe 7-10) Last Admin: 09/04/18 17:41 Dose: 1 tab Discontinued Medications Acetaminophen (Tylenol Extra Strength) 1,000 mg PO ONETIME ONE Stop: 09/02/18 06:01 Last Admin: 09/02/18 06:02 Dose: 1,000 mg Bandage/Support Products ( Nasal Translator/Interpreter) 1 applic NASBOTH ONETIME ONE Stop: 09/02/18 06:01 Bandage/Support Products ( Nasal Translator/Interpreter) 1 applic NASBOTH BID [facility] Last Admin: 09/02/18 12:07 Dose: Not Given Enoxaparin Sodium (Lovenox) 30 mg SUBCUT Q24H [facility] Last Admin: 09/02/18 12:07 Dose: Not Given Ephedrine Sulfate (Ephedrine Sulfate) Confirm Administered Dose 50 mg .ROUTE .STK-MED ONE Stop: 09/02/18 08:08 Fentanyl (Sublimaze) Confirm Administered Dose 100 mcg .ROUTE .STK-MED ONE Stop: 09/02/18 07:32 Cefazolin Sodium/Dextrose 2 gm (/ Premix) 50 mls @ 100 mls/hr IV ONETIME ONE Stop: 09/02/18 06:29 Last Admin: 09/02/18 07:29 Dose: 100 mls/hr Lactated Ringer's (Ringers, Lactated) 1,000 mls @ 75 mls/hr IV ASDIRECTED [facility] Last Admin: 09/02/18 19:04 Dose: 75 mls/hr Sodium Chloride (Normal Saline) Confirm Administered Dose 10 mls @ as directed .ROUTE .STK-MED ONE Stop: 09/02/18 08:08 Cefazolin Sodium 1 gm/ Sodium (Chloride) 50 mls @ 200 mls/hr IV Q8H [facility] Stop: 09/03/18 01:29 Last Admin: 09/02/18 12:07 Dose: Not Given Cefazolin Sodium/Dextrose 1 gm (/ Premix) 50 mls @ 100 mls/hr IV Q8H [facility] Stop: 09/03/18 06:59 Last Admin: 09/03/18 05:38 Dose: 100 mls/hr Lisinopril (Prinivil) 20 mg PO DAILY [facility] Metformin HCl (Glucophage Xr) 500 mg PO BID [facility] Midazolam HCl (Versed 1 Mg/Ml) Confirm Administered Dose 2 mg .ROUTE .STK-MED ONE Stop: 09/02/18 07:32 Morphine Sulfate (Morphine) 2 mg IVPUSH Q1H PRN PRN Reason: Pain (severe 7-10) Last Admin: 09/02/18 21:24 Dose: 2 mg Non-Formulary Medication (Atorvastatin [Lipitor]) 80 mg PO BEDTIME AMI Oxycodone/Acetaminophen (Percocet 325-5 Mg) 0 tab PO Q6H PRN PRN Reason: Pain (severe 7-10) Povidone Iodine (Betadine 10% Soln) Confirm Administered Dose 1 ml .ROUTE .STK- MED ONE Stop: 09/02/18 06:34 Last Admin: 09/02/18 08:12 Dose: 40 ml Propofol (Diprivan 20 Ml) Confirm Administered Dose 200 mg .ROUTE .STK-MED ONE Stop: 09/02/18 07:32 Scopolamine (Transderm-Scop) 1.5 mg TOP Q72H [facility] Stop: 09/04/18 06:01 Last Admin: 09/02/18 06:03 Dose: 1.5 mg
[2018-09-05 11:36] VITALS: BP 110/39
== END 2018-09-05 14:22 | DRG 470 ==
LOC: JP.SDSSCHI 05:27 → JP.SDS 05:28 → EDSTATUS 07:30 → JP.MS 09:15
PROVIDERS: ADMIT Specialist; ATTEND Specialist
PROC: 0SRB02A Replacement of Left Hip Joint with Metal on Polyethylene Synthetic Substitute, Uncemented, Open Approach (ICD-10-PCS; principal; 2018-09-02)
DX: M16.12 Unilateral primary osteoarthritis, left hip (principal); I10 Essential (primary) hypertension; H81.10 Benign paroxysmal vertigo, unspecified ear; E11.42 Type 2 diabetes mellitus with diabetic polyneuropathy; H90.5 Unspecified sensorineural hearing loss; E78.00 Pure hypercholesterolemia, unspecified; M47.9 Spondylosis, unspecified; Z85.820 Personal history of malignant melanoma of skin; Z85.51 Personal history of malignant neoplasm of bladder; Z90.710 Acquired absence of both cervix and uterus; Z79.899 Other long term (current) drug therapy; Z79.4 Long term (current) use of insulin; Z88.1 Allergy status to other antibiotic agents; Z88.5 Allergy status to narcotic agent; Z85.828 Personal history of other malignant neoplasm of skin; Z88.8 Allergy status to other drugs, medicaments and biological substances
CPT/HCPCS: 36415; 73501-26-LT; 73501-LT; 82962; 85027; 86850; 86900; 86901; 97110-GP; 97116-GP; 97162-GP; 97165-GO; 97530-GP; 97535-GP; A9270-GY; J0690; J1650; J2250; J2270; J2704; J3010; J7120